=== PATIENT | female | born 1940 | race Native Hawaiian/Other Pacific Islander ===

== ENCOUNTER 2016-12-25 12:58 | Outpatient (CLI) | payer OTHER, MEDICARE ==
[~2016-12-25 12:58] MED LIST: ACET7.5T70 PO; CELEXA40 MG PO; FLUTMIS14 INH; GABA300C2 PO; HYDR12.54; NEXIUM40 M1 PO; ROBAXIN-750750 MG PO; TIZA4TAB5 PO
== END 2016-12-25 14:00 | disposition home or self-care (01) ==
LOC: MAMMO 12:58
DX: Z12.31 Encounter for screening mammogram for malignant neoplasm of breast (principal)
CPT/HCPCS: G0202-TC

== ENCOUNTER 2018-02-14 13:11 | Outpatient (CLI) | payer OTHER | END 2018-02-14 20:10 | disposition home or self-care (01) | LOC: MAMMO 13:11 | DX: Z12.31 Encounter for screening mammogram for malignant neoplasm of breast (principal) ==

== ENCOUNTER 2019-04-11 10:50 | Outpatient (CLI) | payer OTHER, MEDICARE | END 2019-04-11 20:15 | disposition home or self-care (01) | LOC: MAMMO 10:50 | DX: Z12.31 Encounter for screening mammogram for malignant neoplasm of breast (principal) ==